=== PATIENT | male | born 1940 | race Caucasian/White ===

== ENCOUNTER 2016-08-16 13:40 | Inpatient (IN) | payer OTHER ==
[2016-08-16 13:51] VITALS: BMI 28.0
[2016-08-16] MEDS ORDERED: ASPIRIN 81 MG CHEWABLE TABLETS PO ONE (14:18)
[2016-08-16] MEDS ORDERED: NITROGLYCERIN SUBLINGUAL 1/150 0.4 MG TAB SL ONE (14:28)
[2016-08-16] MEDS ORDERED: ASPIRIN 81 MG CHEWABLE TABLETS ONE (14:35)
[2016-08-16] MEDS ORDERED: NITROGLYCERIN SUBLINGUAL 1/150 0.4 MG TAB ONE (14:35)
--- NOTE | 2016-08-16 14:45 | PDOC ---
History of Present Illness - General History Source: Patient Exam Limitations: No Limitations <Rohini Bay - Last Filed: 08/16/16 16:31> - General History Source: Patient Exam Limitations: No Limitations <Grace Villanueva - Last Filed: 08/16/16 17:04> - General Chief Complaint: Chest Pain Stated Complaint: CHEST PAIN Time Seen by Provider: 08/16/16 14:04 - History of Present Illness Initial Comments: 08/16/16 15:08 The patient is a 75 year old male, with a significant past medical history of hypertension, who presents to the emergency department complaining of chest pain since earlier this afternoon. The patient reports he was bowling, when suddenly he began to experience discomfort in his chest. He reports his pain is constant and localized substernally. When he went to sit and put on his shoes, he reports experiencing dizziness, diaphoresis, and nausea. He reports his pain is nonradiating and nonpleuritic in nature. He denies any associated numbness, tingling, shortness of breath, palpitations, or lower extremity edema. The patient reports similar chest pains in the past, but only with exertion. The patients last stress test was approximately 2-3 years ago. He denies any fever , chills, or headache. He reports he recently traveled to [place], but has no history of PE or DVT. He denies any abdominal pain, nausea, vomiting, diarrhea, or constipation. Allergies: None reported. Past Surgical History: None reported. Social History: Former Smoker. No ETOH or drug use. PCP: Dr. Bay (Grace Villanueva) Past History - Past Medical History HTN: Yes - Psycho/Social/Smoking Cessation Hx Anxiety: No Suicidal Ideation: No Smoking History: Former smoker Have you smoked in the past 12 months: No Information on smoking cessation initiated: No Hx Alcohol Use: No Drug/Substance Use Hx: No Substance Use Type: None <Rohini Bay - Last Filed: 08/16/16 16:31> <Grace Villanueva - Last Filed: 08/16/16 17:04> - Past Medical History Allergies/Adverse Reactions: Allergies Allergy/AdvReac Type Severity Reaction Status Date / Time No Known Allergies Allergy Verified 08/16/16 13:48 Review of Systems <Rohini Bay - Last Filed: 08/16/16 16:31> - Review of Systems Able to Perform ROS?: Yes <Grace Villanueva - Last Filed: 08/16/16 17:04> - Review of Systems Comments:: 08/16/16 15:08 GENERAL/CONSTITUTIONAL: No fever or chills. No weakness. HEAD, EYES, EARS, NOSE AND THROAT: No change in vision. No ear pain or discharge. No sore throat. CARDIOVASCULAR: Yes: +chest pain, +diaphoresis. No shortness of breath. RESPIRATORY: No cough, wheezing, or hemoptysis. GASTROINTESTINAL: No nausea, vomiting, diarrhea or constipation. GENITOURINARY: No dysuria, frequency, or change in urination. MUSCULOSKELETAL: No joint or muscle swelling or pain. No neck or back pain. SKIN: No rash NEUROLOGIC: No headache, vertigo, loss of consciousness, or change in strength/ sensation. ENDOCRINE: No increased thirst. No abnormal weight change. HEMATOLOGIC/LYMPHATIC: No anemia, easy bleeding, or history of blood clots. ALLERGIC/IMMUNOLOGIC: No hives or skin allergy. (Grace Villanueva) *Physical Exam <Rohini Bay - Last Filed: 08/16/16 16:31> <Grace Villanueva - Last Filed: 08/16/16 17:04> - Vital Signs Last Vital Signs Temp Pulse Resp BP Pulse Ox 97.6 F 70 20 140/98 98 08/16/16 13:48 08/16/16 13:48 08/16/16 13:48 08/16/16 13:48 08/16/16 13:48 - Physical Exam Comments: 08/16/16 15:08 GENERAL: Awake, alert, and fully oriented, in no acute distress HEAD: No signs of trauma EYES: PERRLA, EOMI, sclera anicteric, conjunctiva clear ENT: Auricles normal inspection, hearing grossly normal, nares patent. Moist mucosa NECK: Normal ROM, supple, no lymphadenopathy, JVD, or masses LUNGS: Breath sounds equal, clear to auscultation bilaterally. No wheezes, and no crackles HEART: Regular rate and rhythm, normal S1 and S2, no murmurs, rubs or gallops ABDOMEN: Soft, nontender, normoactive bowel sounds. No guarding, no rebound. No masses EXTREMITIES: Normal range of motion, no edema. No clubbing or cyanosis. No cords, erythema, or tenderness. DP/PT pulses 2+ and symmetric. Warm and well perfused. NEUROLOGICAL: Moves all extremities. Normal speech, normal gait SKIN: Warm, Dry, normal turgor, no rashes or lesions noted. (Grace Villanueva) Heart Score/ECG Review #2 ECG reviewed & interpreted by me at: 15:30 General ECG Interpretation: Sinus Rhythm, Normal Rate (64), Normal Intervals, No acute ischemic changes Compared to previous ECG there are: No significant change <Rohini Bay - Last Filed: 08/16/16 16:31> ED Treatment Course - LABORATORY CBC & Chemistry Diagram: 08/16/16 Unknown 08/16/16 Unknown <Rohini Bay - Last Filed: 08/16/16 16:31> - LABORATORY CBC & Chemistry Diagram: 08/16/16 Unknown 08/16/16 Unknown <Grace Villanueva - Last Filed: 08/16/16 17:04> - RADIOLOGY Radiograph Interpretation: 08/16/16 17:03 EXAM: CXR INTERPRETED BY: Dr. Jesus REVIEWED BY: Dr. Bay IMPRESSION: No acute pathology. (Grace Villanueva) - Medications Given in the ED: ED Medications Discontinued Medications Generic Name Dose Route Start Last Admin Trade Name Freq PRN Reason Stop Dose Admin Aspirin 162 mg 08/16/16 14:18 08/16/16 14:42 Asa - PO 08/16/16 14:19 162 mg ONCE ONE Administration Enoxaparin Sodium 100 mg 08/16/16 16:46 08/16/16 16:48 Lovenox - SQ 08/16/16 16:47 100 mg ONCE ONE Administration Nitroglycerin 0.4 mg 08/16/16 14:28 08/16/16 14:45 Nitrostat - SL 08/16/16 14:29 0.4 mg ONCE ONE Administration Nitroglycerin 1 inch 08/16/16 16:31 08/16/16 16:45 Nitro-Bid 2% Paste - TD 08/16/16 16:32 1 inch ONCE ONE Administration Medical Decision Making <Rohini Bay - Last Filed: 08/16/16 16:31> <Grace Villanueva - Last Filed: 08/16/16 17:04> - Medical Decision Making 08/16/16 14:39 75 yo M with h/o HTN, here wtih c/o chest pain. started 1 hour ago while bowling. pt noted substernal pain, no radiation. no f/c no cough. did get recurrent episode following, with associated lightheaded ness, nausea, and diaphoresis. no arm tingling or numbness. no abd or back pain. no h/o similar pain. has had a stress test 3 yrs ago. pt take bp meds, can't remember name. no h/o pe or dvt. pain still present on arrival. did not take any meds prior to arrival. on exam awake alert, lungs clear. heart RRR nom/r/g. abd soft NT ND no palp mass. ext wwp no calf edema. symmetric 2+ pulses bilaterally.. differential: ACS, infection angina. near syncope. pe unlikley. plan pt treated with asa, given nitro for pain. repeat ekg . will require admission to telemtry ro ACS. cxr (Rohini Bay) 08/16/16 16:47 First call placed to Dr. Parks at 16:47. Awaiting call back from Dr. Bee. Case discussed with Dr. Bee at 16:55. (Grace Villanueva) *DC/Admit/Observation/Transfer - Discharge Dispostion Admit: Yes <Rohini Bay - Last Filed: 08/16/16 16:31> <Grace Villanueva - Last Filed: 08/16/16 17:04> Diagnosis at time of Disposition: Chest pain - Attestations Scribe Attestion: 08/16/16 15:08 Documentation prepared by Grace Villanueva, acting as adjunct faculty for medical terminology for Rohini Bay MD. (Grace Villanueva)
[2016-08-16 14:47] LABS: BASOPHIL 0.4 % (0-2.0); MCHC 34.1 g/dl (32.0-35.9); MEAN PLT VOLUME 8.2 fl (7.5-11.1); NEUTROPHILS 81.3 % (42.8-82.8); PLATELET COUNT 138 K/MM3 (134-434); RDW 13.5 % (11.9-15.9); WHITE BLOOD COUNT 8.3 K/mm3 (4.0-10.0)
[2016-08-16 15:13] LABS: ALBUMIN 3.8 g/dl (3.4-5.0); ANION GAP 12 (8-16); BILIRUBIN,TOTAL 0.3 mg/dL (0.2-1.0); CALCIUM 8.5 mg/dL (8.5-10.1); CO2 21 mmol/L (21-32); CREATININE 0.9 mg/dL (0.7-1.3); GLUCOSE,RANDOM 109 mg/dL (74-106); SGOT/AST 20 U/L (15-37); SGPT/ALT 19 U/L (12-78); TOT PROT 6.5 g/dl (6.4-8.2)
[2016-08-16 15:15] LABS: ALK PHOS 117 U/L (45-117); TROPONIN I < 0.02 ng/ml (0.00-0.05)
[2016-08-16] MEDS ORDERED: NITROGLYCERIN 2% OINTMENT - 1GM PACKET TD ONE ×2 (16:31→16:36)
[2016-08-16] MEDS ORDERED: ENOXAPARIN NA (PORCINE) 100 MG/1 ML DISP.SYRIN SQ ONE (16:46)
[2016-08-16] MEDS ORDERED: ENOXAPARIN NA (PORCINE) 40 MG/0.4 ML DISP.SYRIN SQ ONE (16:53)
--- NOTE | 2016-08-16 18:20 | HP ---
Admitting History and Physical - Admission Chief Complaint: Chest pain History of Present Illness: 75 yrs old man H/O HTN, excellent exercise tolerance, 3 yrs ago had - ve NST, toady patient was doing Bowling after 4 round developed retro-sternal chest tightness,8/10, non radiating, lasted > 25 minutes with associated nausea and dizziness also felt SOB, denies any palpitation, 911 was called patient came to Ed for evaluation received ASA and NTG X2 with relive in pain, at the time of examination almost chest pain free denies any chest pain SOB or Palpitation. History Source: Patient Limitations to Obtaining History: No Limitations - Past Medical History Cardiovascular: Yes: HTN - Smoking History Smoking history: Former smoker Have you smoked in the past 12 months: No - Alcohol/Substance Use Hx Alcohol Use: No Home Medications - Allergies Allergies/Adverse Reactions: Allergies Allergy/AdvReac Type Severity Reaction Status Date / Time No Known Allergies Allergy Verified 08/16/16 13:48 - Home Medications Home Medications: Ambulatory Orders Aspirin [ASA -] 81 mg PO DAILY tab.chew 08/17/16 Atorvastatin Ca [Lipitor] 40 mg PO HS #30 tablet 08/17/16 Metoprolol Tartrate [Lopressor -] 12.5 mg PO BID #30 tablet 08/17/16 Family Disease History - Family Disease History Family Disease History: Heart Disease: Father, Mother Review of Systems - Review of Systems Constitutional: denies: Chills, Diaphoresis Eyes: reports: No Symptoms HENT: denies: Difficult Swallowing, Ear Discharge Neck: denies: Decreased ROM, Lumps Cardiovascular: reports: Chest Pain, Shortness of Breath Respiratory: denies: Cough, Hemoptysis, Orthopnea Gastrointestinal: denies: Abdominal Pain, Bloating, Constipation Genitourinary: denies: Burning, Discharge, Dysuria Musculoskeletal: denies: Back Pain, Decreased ROM Neurological: reports: No Symptoms Endocrine: denies: Excessive Sweating, Flushing Hematology/Lymphatic: denies: Easily Bruised, Excessive Bleeding Physical Examination Vital Signs: Vital Signs Temperature 97.6 F 08/16/16 13:48 Pulse Rate 70 08/16/16 13:48 Respiratory Rate 20 08/16/16 13:48 Blood Pressure 140/98 08/16/16 13:48 O2 Sat by Pulse Oximetry (%) 98 08/16/16 13:48 Elderly man comfortable denies any chest pain or SOB HEENT: MM moist , no anemia, , PERRLA, EOMI NECK; No JVD No Bruit CHEST: CTA B/L CVS; S1S2 R no m/g/r ABD: No distention, non tender Bs + EXT: No edema feet, no calf tenderness, Pulses +2 [employer]: AOx3 non focal Labs: CBC, BMP 08/16/16 Unknown 08/16/16 Unknown Imaging - Results Chest X-ray: Report Reviewed (Normal) EKG: Report Reviewed Problem List - Problems (1) Chest pain, rule out acute myocardial infarction Assessment/Plan: Patient is 72 yrs old man H/O HTN, present with typical anginal pain with exertion, responded to NTG, no EKG changes, normal Ist Trop I will Admit Tele monitor F/U serial CE, ECHO, , cardiology consult is called from the ED, seial EKGs, ASAS, Lipitor 80 mg, recived 1 dose of Lovenox, S/L NTG PRN for pain low dose B Blockers. Code(s): R07.9 - CHEST PAIN, UNSPECIFIED (2) HTN (hypertension) Assessment/Plan: Well controlled cont all home meds. Code(s): I10 - ESSENTIAL (PRIMARY) HYPERTENSION
[2016-08-16] MEDS ORDERED: ATORVASTATIN CA 80 MG TABLET (FP) PO ONE (18:27)
[2016-08-16] MEDS: ACETAMINOPHEN 325 MG TABLET (FP) PO PRN (20:30)
[2016-08-16 20:42] LABS: LDL CHOLESTEROL (ONLY SJRH) 106 mg/dL (5-100)
[2016-08-16 20:47] LABS: CHOLESTEROL 168 mg/dL (50-200)
[2016-08-16] MEDS: METOPROLOL TARTRATE 25 MG TABLET (FP) PO SCH (21:39)
[2016-08-17] MEDS: ACETAMINOPHEN 325 MG TABLET (FP) PO PRN (03:25)
--- NOTE | 2016-08-17 07:04 | CON.CARD ---
Consult Consult Specialty:: Cardiology for Dr. Parks/Keila Referred by:: Hospitalist Reason for Consultation:: Chest pain - History of Present Illness Chief Complaint: Chest pain History of Present Illness: 75 year old man with a history of HTN admitted with chest pain yesterday. Pt seen and examined today in nad. States that he was bowling yesterday when he felt sudden onset severe substernal chest pain, associated with dizziness, diaphoresis, nausea. He states that the chest pain continued all day including while in the ER yesterday evening then resolved overnight. This am he feels his normal self, asymptomatic. no further chest pain today. States he had a stress test 2-3 years ago that was normal. Denies any sob, pnd, orthopnea, le edema, no palpitations. no syncope or near syncope. - History Source History Provided By: Patient, Medical Record Limitations to Obtaining History: No Limitations - Past Medical History Cardio/Vascular: Yes: HTN - Alcohol/Substance Use Hx Alcohol Use: No - Smoking History Smoking history: Former smoker Have you smoked in the past 12 months: No - Social History ADL: Independent History of Recent Travel: No Home Medications - Allergies Allergies/Adverse Reactions: Allergies Allergy/AdvReac Type Severity Reaction Status Date / Time No Known Allergies Allergy Verified 08/16/16 13:48 - Home Medications Home Medications: Ambulatory Orders RX: Aspirin [ASA -] 81 mg PO DAILY tab.chew 08/17/16 RX: Atorvastatin Ca [Lipitor] 40 mg PO HS #30 tablet 08/17/16 RX: Metoprolol Tartrate [Lopressor -] 12.5 mg PO BID #30 tablet 08/17/16 Family Disease History - Family Disease History Family Disease History: Heart Disease: Father, Mother Review of Systems - Review of Systems Constitutional: reports: Diaphoresis. denies: No Symptoms, Chills, Fever, Lethargy, Loss of Appetite, Malaise, Night Sweats, Unintentional Wgt. Loss, Weakness, Other Eyes: denies: No Symptoms, Blind Spots, Blurred Vision, Double Vision, Eye Pain , Floaters, Photophobia, Recent Change in Vision, Other HENT: denies: No Symptoms, Difficult Swallowing, Ear Discharge, Ear Pain, Epistaxis, Gingival Bleeding, Hearing Loss, Mouth Swelling, Nasal Congestion, Ocular Prosthesis, Throat Pain, Toothache, Ringing in Ears, Other Neck: denies: No Symptoms, Decreased ROM, Lumps, Pain on Movement, Stiffness, Swollen Glands, Tenderness, Other Cardiovascular: reports: Chest Pain. denies: No Symptoms, Edema, Palpitations, Shortness of Breath, Other Respiratory: denies: No Symptoms, Cough, Exercise Intolerance, Hemoptysis, Orthopnea, PND, Snoring, SOB, SOB on Exertion, Wheezing, Other Gastrointestinal: reports: Nausea. denies: No Symptoms, Abdominal Pain, Bloating, Constipation, Diarrhea, Dysphagia, Indigestion, Melena, Rectal Bleeding, Vomiting, Vomiting Blood, Other Genitourinary: denies: No Symptoms, Burning, Discharge, Dysuria, Flank Pain, Frequency, Hematuria, Incontinence, Lesions, Menses, Pain, Testicular Mass, Testicular Pain, Testicular Swelling, Urgency, Vaginal Bleeding, Other Breasts: denies: No Symptoms Reported, See HPI, Breast Implants, Discharge from Nipple, Lumps, Pain, Skin Changes, Other Musculoskeletal: denies: No Symptoms, Back Pain, Crepitus, Decreased ROM, Extremity Pain, Joint Pain, Joint Swelling, Muscle Pain, Muscle Cramps, Muscle Weakness, Other Integumentary: denies: No Symptoms, Blister, Bruising, Change in Color, Eczema, Erythema, Incision, Lesions, Lump, Pallor, Pruritis, Rash, Wound, Other Neurological: denies: No Symptoms, Change in LOC, Change in Speech, Confusion, Dizziness, Headache, Incoordination, Numbness, Parasthesia, Pre-Existing Deficit , Seizure, Syncope, Tremors, Unsteady Gait, Weakness, Other Endocrine: denies: No Symptoms, Excessive Sweating, Flushing, Increased Hunger, Increased Thirst, Intolerance to Cold, Intolerance to Heat, Unexplained Weight Gain, Unexplained Weight Loss, Other Hematology/Lymphatic: denies: No Symptoms, Easily Bruised, Excessive Bleeding, Swollen Glands, Other Psychiatric: denies: No Symptoms, Altered Sleep Pattern, Anxiety, Depression, Hallucinations, Panic, Paranoia, Suicidal, Other - Risk Factors Known Risk Factors: Yes: Hypertension Vital Signs: Vital Signs Temperature 98.2 F 08/16/16 21:00 Pulse Rate 51 L 08/17/16 05:00 Respiratory Rate 16 08/17/16 05:00 Blood Pressure 115/59 08/17/16 05:00 O2 Sat by Pulse Oximetry (%) 98 08/16/16 22:00 Constitutional: Yes: Well Nourished, No Distress, Calm Eyes: Yes: WNL, Conjunctiva Clear, EOM Intact, PERRL HENT: Yes: WNL, Atraumatic, Normocephalic Neck: Yes: WNL, Supple, Trachea Midline Respiratory: Yes: WNL, Regular, CTA Bilaterally. No: Rales, Rhonchi, Wheezes Gastrointestinal: Yes: WNL, Normal Bowel Sounds, Soft. No: Distention, Tenderness Renal/: Yes: WNL Cardiovascular: Yes: WNL, Regular Rate and Rhythm. No: Bradycardia, Tachycardia , Pulse Irregular, Gallop, Rub, Varicosities JVD: No Carotid Bruit: No PMI: Non-Displaced Heart Sounds: Yes: S1, S2. No: Split S2, S3, S4, Clicks, Gallop, Rub, Bruit Murmur: No: Systolic Murmur, Diastolic Murmur Musculoskeletal: Yes: WNL Extremities: Yes: WNL Edema: No Peripheral Pulses WNL: Yes Peripheral Pulses: 2+ Left Doralis Pedis, 2+ Right Dorsalis Pedis Integumentary: Yes: WNL Neurological: Yes: WNL, Alert, Oriented, Cran Nerves II-XII Intact ...Motor Strength: WNL Psychiatric: Yes: WNL, Alert, Oriented - Other Data Labs, Other Data: CBC, BMP 08/16/16 Unknown 08/16/16 Unknown Troponin, BNP 08/16/16 08/16/16 Unknown Unknown Troponin I < 0.02 < 0.02 Troponin, BNP 08/16/16 08/16/16 Unknown Unknown Troponin I < 0.02 < 0.02 ekg-not available in chart for review, reportedly normal with no ischemia Imaging - Results Chest X-ray: Report Reviewed, Image Reviewed EKG: Report Reviewed, Image Reviewed Other: Report Reviewed, Image Reviewed (tele-nsr, sinus bradycardia, PVCs, 1 episode brief bigeminy) Assessment/Plan 75 year old man with a history of HTN admitted with chest pain yesterday. Pt seen and examined today in nad. States that he was bowling yesterday when he felt sudden onset severe substernal chest pain, associated with dizziness, diaphoresis, nausea. He states that the chest pain continued all day including while in the ER yesterday evening then resolved overnight. Chest pain-concerning for angina -no further chest pain overnight or today thus far -cardiac enzymes wnl x 2 -repeat cardiac enzymes this am -I have recc to patient that he stay for observation until tomorrow with a plan for echo and exercise nuclear stress test tomorrow. He expressed desire to be discharged home today and have further work up as outpatient this week. I have informed him that while his tests thus far have showed no evidence of an CT he could still have significant CAD causing his symptoms and could have an unstable plaque and thus would recc further work up as inpatient. -echo and nuclear stress test ordered for tomorrow in case patient agrees to remain inpatient for additional work up. If he is discharged would plan for the above tests as early as possible this week as outpatient.
[2016-08-17 07:25] LABS: BASOPHIL 0.5 % (0-2.0); EOSINOPHIL 1.5 % (0-4.5); MCH 31.2 pg (25.7-33.7); MCHC 34.2 g/dl (32.0-35.9); MEAN CELL VOLUME 91.1 fl (80-96); MEAN PLT VOLUME 7.9 fl (7.5-11.1); NEUTROPHILS 74.7 % (42.8-82.8); PLATELET COUNT 137 K/MM3 (134-434); RDW 13.5 % (11.9-15.9); WHITE BLOOD COUNT 8.6 K/mm3 (4.0-10.0)
[2016-08-17 08:52] LABS: ALBUMIN 3.6 g/dl (3.4-5.0); ANION GAP 7 (8-16); BILIRUBIN,TOTAL 0.6 mg/dL (0.2-1.0); CALCIUM 8.6 mg/dL (8.5-10.1); CO2 26 mmol/L (21-32); CREATININE 0.9 mg/dL (0.7-1.3); GLUCOSE,RANDOM 89 mg/dL (74-106); SGOT/AST 20 U/L (15-37); SGPT/ALT 19 U/L (12-78); TOT PROT 5.9 g/dl (6.4-8.2)
[2016-08-17 09:01] LABS: ALK PHOS 99 U/L (45-117); THYROID STIMULATING HORMONE 0.66 uIU/ml (0.358-3.74)
[2016-08-17] MEDS: METOPROLOL TARTRATE 25 MG TABLET (FP) PO SCH (09:16)
[2016-08-17] MEDS ORDERED: ASPIRIN 81 MG CHEWABLE TABLETS PO SCH (10:00)
--- NOTE | 2016-08-17 10:53 | DS ---
Physical Exam: SUBJECTIVE: Patient seen and examined OBJECTIVE: Vital Signs Period Temp Pulse Resp BP Sys/Stout Pulse Ox Last 24 Hr 97.6 F-98.2 F 51-70 16-17 100-148/51-80 98-98 PHYSICAL EXAM GENERAL: The patient is awake, alert, and fully oriented, in no acute distress. HEAD: Normal with no signs of trauma. EYES: PERRL, extraocular movements intact, sclera anicteric, conjunctiva clear. ENT: Ears normal, nares patent, oropharynx clear without exudates, moist mucous membranes. NECK: Trachea midline, full range of motion, supple. LUNGS: Breath sounds equal, clear to auscultation bilaterally, no wheezes, no crackles, no accessory muscle use. HEART: Regular rate and rhythm, S1, S2 without murmur, rub or gallop. ABDOMEN: Soft, nontender, nondistended, normoactive bowel sounds, no guarding, no rebound, no hepatosplenomegaly, no masses. EXTREMITIES: 2+ pulses, warm, well-perfused, no edema. NEUROLOGICAL: Cranial nerves II through XII grossly intact. Normal speech, gait not observed. PSYCH: Normal mood, normal affect. SKIN: Warm, dry, normal turgor, no rashes or lesions noted. LABS Laboratory Results - last 24 hr 08/16/16 08/16/16 08/16/16 Unknown Unknown Unknown WBC 8.3 RBC 4.29 Hgb 13.3 Hct 39.0 MCV 91.0 MCHC 34.1 RDW 13.5 Plt Count 138 MPV 8.2 Neutrophils % 81.3 Lymphocytes % 11.5 Monocytes % 5.8 Eosinophils % 1.0 Basophils % 0.4 Sodium 142 Potassium 3.6 Chloride 109 H Carbon Dioxide 21 Anion Gap 12 BUN 19 H D Creatinine 0.9 Creat Clearance w eGFR > 60 Random Glucose 109 H Hemoglobin A1c % Calcium 8.5 Total Bilirubin 0.3 AST 20 ALT 19 Alkaline Phosphatase 117 Creatine Kinase 167 Creatine Kinase Index 0.8 CK-MB (CK-2) 1.338 CK-MB (CK-2) Rel Index Cancelled Troponin I < 0.02 Total Protein 6.5 Albumin 3.8 Triglycerides Cholesterol Total LDL Cholesterol HDL Cholesterol TSH 08/16/16 08/16/16 08/17/16 Unknown Unknown 05:42 WBC 8.6 RBC 3.95 L Hgb 12.3 Hct 36.0 MCV 91.1 MCHC 34.2 RDW 13.5 Plt Count 137 MPV 7.9 Neutrophils % 74.7 Lymphocytes % 15.0 D Monocytes % 8.3 Eosinophils % 1.5 Basophils % 0.5 Sodium Potassium Chloride Carbon Dioxide Anion Gap BUN Creatinine Creat Clearance w eGFR Random Glucose Hemoglobin A1c % Calcium Total Bilirubin AST ALT Alkaline Phosphatase Creatine Kinase Creatine Kinase Index CK-MB (CK-2) CK-MB (CK-2) Rel Index Troponin I < 0.02 Total Protein Albumin Triglycerides 81 Cholesterol 168 Total LDL Cholesterol 106 H HDL Cholesterol 43 TSH 08/17/16 08/17/16 05:42 05:42 WBC RBC Hgb Hct MCV MCHC RDW Plt Count MPV Neutrophils % Lymphocytes % Monocytes % Eosinophils % Basophils % Sodium 142 Potassium 3.8 Chloride 109 H Carbon Dioxide 26 D Anion Gap 7 L BUN 19 H Creatinine 0.9 Creat Clearance w eGFR > 60 Random Glucose 89 Hemoglobin A1c % 5.7 Calcium 8.6 Total Bilirubin 0.6 D AST 20 ALT 19 Alkaline Phosphatase 99 Creatine Kinase Creatine Kinase Index CK-MB (CK-2) CK-MB (CK-2) Rel Index Troponin I Total Protein 5.9 L Albumin 3.6 Triglycerides Cholesterol Total LDL Cholesterol HDL Cholesterol TSH 0.66 HOSPITAL COURSE: Date of Admission:08/16/16 Date of Discharge: 08/17/16 Minutes to complete discharge: 30 Discharge Summary Reason For Visit: CHEST PAIN Current Active Problems Chest pain (Acute) Chest pain, rule out acute myocardial infarction (Acute) HTN (hypertension) (Acute) Condition: Stable - Instructions Diet, Activity, Other Instructions: Please call Dr. Bay's office tomorrow to schedule a follow up appointment and to arrange for a nuclear stress test. You should avoid strenuous activity until you have the results of the stress test. Referrals: Hayes Bay MD [Staff Physician] - Disposition: HOME - Home Medications Comprehensive Discharge Medication List: Ambulatory Orders Aspirin [ASA -] 81 mg PO DAILY tab.chew 08/17/16 Atorvastatin Ca [Lipitor] 40 mg PO HS #30 tablet 08/17/16 Metoprolol Tartrate [Lopressor -] 12.5 mg PO BID #30 tablet 08/17/16 This patient is new to me today: Yes Date on this admission: 08/17/16 Emergency Visit: Yes ED Registration Date: 08/16/16 Care time: The patient presented to the Emergency Department on the above date and was hospitalized for further evaluation of their emergent condition. Critical Care patient: No - Discharge Referral Referred to [facility] Yes Physician Referral: Hayes Foreman MD ([facility])
[2016-08-17 11:01] VITALS: BP 131/72; PULSE 60; TEMP 97.9
--- NOTE | 2016-08-17 15:38 | EKG ---
Test Reason : Blood Pressure : / mmHG Vent. Rate : 064 BPM Atrial Rate : 064 BPM P-R Int : 202 ms QRS Dur : 094 ms QT Int : 450 ms P-R-T Axes : 055 013 052 degrees QTc Int : 464 ms NORMAL SINUS RHYTHM NORMAL ECG WHEN COMPARED WITH ECG OF 16-AUG-2016 13:47, NO SIGNIFICANT CHANGE WAS FOUND Confirmed by JESSICA RENEE MD ([id number]) on 08/17/2016 3:38:00 PM Referred By: Confirmed By:JESSICA RENEE MD
--- NOTE | 2016-08-17 15:38 | EKG ---
Test Reason : Blood Pressure : / mmHG Vent. Rate : 068 BPM Atrial Rate : 068 BPM P-R Int : 196 ms QRS Dur : 100 ms QT Int : 436 ms P-R-T Axes : 053 017 060 degrees QTc Int : 463 ms NORMAL SINUS RHYTHM NONSPECIFIC ST ABNORMALITY ABNORMAL ECG WHEN COMPARED WITH ECG OF 22-NOV-1999 14:23, PREMATURE VENTRICULAR COMPLEXES ARE NO LONGER PRESENT Confirmed by THELMA PRADO, JESSICA ([id number]) on 08/17/2016 3:38:19 PM Referred By: Confirmed By:JESSICA RENEE MD
[2016-08-17] MEDS ORDERED: ATORVASTATIN CA 40 MG TABLET (FP) PO SCH (22:00)
== END 2016-08-17 11:20 | disposition home or self-care (01) | DRG 313 ==
LOC: JER 13:40 → JERBED 15:54 → UNDOADMIN 16:06 → JERBED 16:06 → J4W 19:53
PROVIDERS: ADMIT Internal Medicine; ATTEND Internal Medicine
DX: R07.89 Other chest pain (principal); I10 Essential (primary) hypertension; Z87.891 Personal history of nicotine dependence
CPT/HCPCS: 36415; 71010-TC; 80053; 80061; 82550; 82553; 83036; 83721; 84443; 84484; 85025; 93005; 93010; 99284-25

== ENCOUNTER 2019-11-10 11:44 | Emergency (ER) | payer OTHER ==
[2019-11-10 11:50] VITALS: BMI 25.4
--- NOTE | 2019-11-10 12:34 | PDOC ---
History of Present Illness - General Chief Complaint: Nausea Stated Complaint: NAUSEA Time Seen by Provider: 11/10/19 12:01 - History of Present Illness Initial Comments: 11/10/19 12:17 78yo M with PMH CAD (s/p 2 stents in 2017), HTN, and recent lower back surgery (10/03/19) presents with 5 days of nausea and abdominal discomfort. Patient states he suddenly started feeling nauseous last Thursday around noon, and has been dry heaving ever since then without bringing anything up. Reports periumbilical discomfort, non-radiating, and exacerbated by food. Called his PCP 3 days ago who prescribed zofran over the phone, which provides temporary relief. The PCP saw him in the office and got and abdominal x-ray and labs, but the patient has not yet heard the results. Reports a 26lb weight loss in the past month, which he discovered when weighed at a recent doctors visit. Thinks he probably has been eating less. Last BM three days ago, which is normal for him, and denies constipation, diarrhea, urinary symptoms. Reports getting whole body shakes in the morning, which self-resolve within minutes. Reports feeling abnormally hot or cold recently, but denies fever or night sweats. Thinks he is weaker than usual, which he attributes to eating less. Denies lightheadedness, vertigo, headache, chest pain, SOB. Of note, he stopped taking gabapentin the week before his symptoms started. PMH/PSH: as above Home Medications Medication Instructions Recorded Atorvastatin Ca [Lipitor] 40 mg PO HS #30 tablet 08/17/16 Amlodipine Besylate 10 mg PO DAILY 11/10/19 Clopidogrel Bisulfate [Plavix -] 75 mg PO DAILY 11/10/19 Losartan Potassium 100 mg PO DAILY 11/10/19 Metoprolol Tartrate [Lopressor -] 25 mg PO DAILY 11/10/19 Ondansetron HCl [Zofran] 4 mg PO TID 11/10/19 Sertraline HCl 100 mg PO DAILY 11/10/19 Allergies Allergy/AdvReac Type Severity Reaction Status Date / Time No Known Allergies Allergy Verified 11/10/19 11:46 PCP: Russell (admits to Chris) NUVIA GENERAL/CONSTITUTIONAL: No fever or chills. weakness. HEAD, EYES, EARS, NOSE AND THROAT: No change in vision. No ear pain or discharge. No sore throat. CARDIOVASCULAR: No chest pain or shortness of breath RESPIRATORY: No cough, wheezing, or hemoptysis. GASTROINTESTINAL: nausea. No vomiting, diarrhea or constipation. GENITOURINARY: No dysuria, frequency, or change in urination. MUSCULOSKELETAL: No joint or muscle swelling or pain. No neck or back pain. SKIN: No rash NEUROLOGIC: No headache, vertigo, loss of consciousness, or change in strength/sensation. ENDOCRINE: No increased thirst. weight loss, heat and cold intolerance HEMATOLOGIC/LYMPHATIC: No anemia, easy bleeding, or history of blood clots. ALLERGIC/IMMUNOLOGIC: No hives or skin allergy. PE GENERAL: Awake, alert, and fully oriented, in no acute distress HEAD: No signs of trauma, normocephalic, atraumatic EYES: PERRLA, EOMI, sclera anicteric, conjunctiva clear ENT: Auricles normal inspection, hearing grossly normal, nares patent, oropharynx clear without exudates. Moist mucosa NECK: Normal ROM, supple, no lymphadenopathy, JVD, or masses LUNGS: No distress, speaks full sentences, clear to auscultation bilaterally HEART: Regular rate and rhythm, normal S1 and S2, no murmurs, rubs or gallops, peripheral pulses normal and equal bilaterally. ABDOMEN: Soft, nontender, non-distended, normoactive bowel sounds. Voluntary guarding. EXTREMITIES : Normal inspection, Normal range of motion, no edema. No clubbing or cyanosis. NEUROLOGICAL: Cranial nerves II through XII grossly intact. Normal speech, no focal sensorimotor deficits SKIN: Warm, Dry, normal turgor. Healing surgical incision on lumbar spine Vital Signs Temp Pulse Resp BP Pulse Ox 97.8 F 65 18 110/69 99 11/10/19 11:46 11/10/19 11:46 11/10/19 11:46 11/10/19 11:46 11/10/19 11:46 MDM: 78yo 78yo M with PMH CAD (s/p 2 stents in 2017), HTN, and recent lower back surgery (10/03/19) presents with 5 days of nausea and abdominal discomfort, as well as a 26lb weight loss over the past month. Exam notable for voluntary abdominal guarding without distension or tenderness. DDx includes bowel obstruction, abdominal mass/cancer, pancreatitis, ACS. -EKG -CT A/P with IV contrast -CBC, CMP, trops, lactate, lipase -1000ml NS bolus -1000mg IV tylenol 11/10/19 13:02 11/10/19 14:27 EKG Labs: No white count or anemia Plt 124 K 3.4 alk phos 154 negative trops x1, lactate, lipase CT A/P IMPRESSION: Peripherally enhancing subcutaneous collection superficial to lumbar spine fusion hardware, suggestive of abscess. Enteric contrast visualized throughout the large intestine is likely retained from previous outside examination. Recommend correlation with history of recent radiologic exams and constipation. Moderate prostatomegaly. 11/10/19 19:51 DC home with omeprazole, instructions to call neurosurgeon tomorrow, and PCP/GI f/u Past History - Medical History Allergies/Adverse Reactions: Allergies Allergy/AdvReac Type Severity Reaction Status Date / Time No Known Allergies Allergy Verified 11/10/19 11:46 Home Medications: Ambulatory Orders Atorvastatin Ca [Lipitor] 40 mg PO HS #30 tablet 08/17/16 Amlodipine Besylate 10 mg PO DAILY 11/10/19 Clopidogrel Bisulfate [Plavix -] 75 mg PO DAILY 11/10/19 Losartan Potassium 100 mg PO DAILY 11/10/19 Metoprolol Tartrate [Lopressor -] 25 mg PO DAILY 11/10/19 Omeprazole 20 mg PO DAILY 14 Days #14 tablet. 11/10/19 Ondansetron HCl [Zofran] 4 mg PO TID 11/10/19 Sertraline HCl 100 mg PO DAILY 11/10/19 Cardiac Disorders: Yes (stent) COPD: No CHF: No HTN: Yes - Psycho-Social/Smoking History Smoking History: Never smoked Have you smoked in the past 12 months: No - Substance Abuse Hx (Audit-C & DAST Scrn) How often the patient has a drink containing alcohol: Never Score: In Men: 4 or > Positive; In Women: 3 or > Positive: 0 Screen Result (Pos requires Nsg. Audit-10AR): Negative *Physical Exam - Vital Signs Last Vital Signs Temp Pulse Resp BP Pulse Ox 97.8 F 65 18 110/69 99 11/10/19 11:46 11/10/19 11:46 11/10/19 11:46 11/10/19 11:46 11/10/19 11:46 ED Treatment Course - LABORATORY CBC & Chemistry Diagram: 11/10/19 12:45 11/10/19 12:45 Discharge - Discharge Information Problems reviewed: Yes Clinical Impression/Diagnosis: Nausea - Additional Discharge Information Prescriptions: Omeprazole 20 mg PO DAILY 14 Days #14 tablet. - Follow up/Referral Referrals: Hayes Bay MD [Primary Care Provider] - Tyrone Michele DO [Staff Physician] - - Patient Discharge Instructions Additional Instructions: You were seen in the ER for nausea. We did a physical exam, EKG, labs, and a CT scan of your abdomen and pelvis, none of which showed any emergent pathology or provided a good explanation for your symptoms. Incidentally, your CT scan showed a fluid collection vs. and abscess underneath your surgical incision. You should call your neurosurgeon about this tomorrow. For your nausea, you should continue to take the anti-nausea medication, zofran. We also sent a prescription for an anti-acid medication, omeprazole, to your pharmacy. You should follow up with your primary doctor in the next three days and see a after school program teacher. Please return to the ER for continued or worsening symptoms, vomiting, fever, or any other reason. - Post Discharge Activity
[2019-11-10] MEDS ORDERED: SODIUM CHLORIDE 0.9% 1000 ML INFUS.BAG IV ONE (12:45)
[2019-11-10] MEDS ORDERED: ACETAMINOPHEN 1000 MG/100 ML VIAL (NON FORMULARY) IVPB ONE (12:45)
[2019-11-10] MEDS ORDERED: ACETAMINOPHEN INJECTION 100 ML IVPB ONE (12:58)
[2019-11-10 13:35] LABS: BASO % 0.5 % (0-2.0); EOS % 1.8 % (0-4.5); HEMATOCRIT 36.1 % (35.4-49); HEMOGLOBIN 12.1 GM/dL (11.7-16.9); LYMPH % 12.7 % (8-40); MCH 30.5 pg (25.7-33.7); MCHC 33.6 g/dl (32.0-35.9); MEAN CELL VOLUME 90.7 fl (80-96); MEAN PLT VOLUME 8.8 fl (7.5-11.1); MONO % 8.8 % (3.8-10.2); NEUT % 76.2 % (42.8-82.8); PLATELET COUNT 124 K/MM3 (134-434); RBC 3.98 M/mm3 (4.00-5.60); RDW 14.1 % (11.9-15.9); WHITE BLOOD COUNT 5.8 K/mm3 (4.0-10.0)
[2019-11-10 14:14] LABS: ALBUMIN 3.9 g/dl (3.4-5.0); ALK PHOS 154 U/L (45-117); ANION GAP 8 MMOL/L (8-16); BILIRUBIN,TOTAL 0.7 mg/dL (0.2-1); CALCIUM 9.2 mg/dL (8.5-10.1); CHLORIDE 104 mmol/L (98-107); CO2 28 mmol/L (21-32); CREATININE 1.2 mg/dL (0.55-1.3); GLUCOSE,RANDOM 102 mg/dL (74-106); LIPASE 114 U/L (73-393); POTASSIUM 3.4 mmol/L (3.5-5.1); SGOT/AST 21 U/L (15-37); SGPT/ALT 26 U/L (13-61); SODIUM 139 mmol/L (136-145); TOT PROT 6.7 g/dl (6.4-8.2)
--- NOTE | 2019-11-10 14:16 | PDOC ---
Documentation entered by Amilcar Meek SCRIBE, acting as scribe for Josias Carolina MD. Josias Carolina MD: This documentation has been prepared by the lenoibeFantasma Alexis, SCRIBE, under my direction and personally reviewed by me in its entirety. I confirm that the documentation accurately reflects all work, treatment, procedures, and medical decision making performed by me. Attending Attestation - Resident Resident Name: TeresaJanusz - ED Attending Attestation I have performed the following: I have examined & evaluated the patient, The case was reviewed & discussed with the resident, I agree w/resident's findings & plan, Exceptions are as noted - HPI HPI: 11/10/19 13:25 The patient is a 78 year old male with a significant past medical history of HTN, CAD ( 2 stents, 2016), and lower back surgery (10/03/19) who presents to the ED for evaluation of sudden onset of nausea and abdominal discomfort that began 5 days ago. The patient reports dry heaving, decreased appetite, weakness, body shakes in the morning without fever, feeling abnormally hot or cold without fever, and pain is worsened with eating. After calling his PCP 3 days ago, he has been taking Zofran to temporary relief. After seeing his PCP yesterday, the patient discovered a 26lb weight loss in the past month and is awaiting imaging and lab results. Last BM: 3 days ago The patient denies chest/back pain, cough, and shortness of breath. Denies fever, chills. Denies any symptoms. Denies any other symptoms. Allergies: NKDA PCP: Dr. Bay - Physicial Exam PE: 11/10/19 13:21 Vitals: Triage Vital signs reviewed General Appearance: no acute distress, well nourished well developed, Neck: Supple;No Nuchal rigidity Chest Wall: Nontender Cardiac: Regular rate and rhythm, no murmurs, no rubs, no gallops, Lungs: Clear to auscultation bilateral, good air movement bilaterally, Abdomen: Soft, nondistended, normal bowel sounds, nontender to palpation Rectal: Exam deferred Extremities: Full range of motion to all extremities, no cyanosis, clubbing, or edema Skin: Warm and dry, no rashes or lesions, no petechiae - Medical Decision Making 11/10/19 14:16 78 year old male with a significant past medical history of HTN, CAD ( 2 stents, 2017), and lower back surgery (10/03/19) who presents to the ED for evaluation of sudden onset of nausea and abdominal discomfort that began 5 days ago Labs and CAT scan unremarkable most likely stomach issue Patient will require outpatient GI follow-up and endoscopy We will start patient on PPI have patient follow-up with his PCP and GI strict return instructions discussed with patient Findings, need for follow-up and strict return instructions discussed with patient. Discharge - Discharge Information Problems reviewed: Yes Clinical Impression/Diagnosis: Nausea Condition: Stable Disposition: HOME - Additional Discharge Information Prescriptions: Omeprazole 20 mg PO DAILY 14 Days #14 tablet.dr - Follow up/Referral Referrals: Hayes Bay MD [Primary Care Provider] - Tyrone Michele DO [Staff Physician] - - Patient Discharge Instructions Additional Instructions: You were seen in the ER for nausea. We did a physical exam, EKG, labs, and a CT scan of your abdomen and pelvis, none of which showed any emergent pathology or provided a good explanation for your symptoms. Incidentally, your CT scan showed a fluid collection vs. and abscess underneath your surgical incision. You should call your neurosurgeon about this tomorrow. For your nausea, you should continue to take the anti-nausea medication, zofran. We also sent a prescription for an anti-acid medication, omeprazole, to your pharmacy. You should follow up with your primary doctor in the next three days and see a developer prover upholstering. Please return to the ER for continued or worsening symptoms, vomiting, fever, or any other reason. - Post Discharge Activity
--- NOTE | 2019-11-10 15:26 | EKG ---
Test Reason : Blood Pressure : / mmHG Vent. Rate : 052 BPM Atrial Rate : 052 BPM P-R Int : 186 ms QRS Dur : 094 ms QT Int : 472 ms P-R-T Axes : 054 019 038 degrees QTc Int : 438 ms SINUS BRADYCARDIA OTHERWISE NORMAL ECG WHEN COMPARED WITH ECG OF 16-AUG-2016 15:28, NO SIGNIFICANT CHANGE WAS FOUND Confirmed by CAREN GUTIÉRREZ MD ([id number]) on 11/10/2019 3:25:44 PM Referred By: Confirmed By:CAREN GUTIÉRREZ MD
[2019-11-10 17:02] VITALS: BP 141/75; PULSE 61; TEMP 98.2
== END 2019-11-10 17:34 | disposition home or self-care (01) ==
LOC: JER 11:44
PROC: 3E0333Z Introduction of Anti-inflammatory into Peripheral Vein, Percutaneous Approach (ICD-10-PCS; principal; 2019-11-10)
DX: R11.0 Nausea (principal)
CPT/HCPCS: 36415; 74177-TC; 80053; 82550; 83605; 83690; 84484; 85025; 93005; 93010; 99285-25; J0131; Q9967

== ENCOUNTER 2020-11-22 04:34 | Day surgery (SDC) | payer OTHER ==
[2020-11-20 16:08] VITALS: BMI 28.6
[2020-11-22 10:37] VITALS: PULSE 64; TEMP 97.1
[2020-11-22 11:00] VITALS: BP 132/71
== END 2020-11-22 10:25 | disposition home or self-care (01) ==
LOC: JASU-ENDO 04:34
PROVIDERS: ATTEND Internal Medicine Gastroenterology
PROC: 0DJD8ZZ Inspection of Lower Intestinal Tract, Via Natural or Artificial Opening Endoscopic (ICD-10-PCS; principal; 2020-11-22 10:18)
DX: Z12.11 Encounter for screening for malignant neoplasm of colon (principal)

== ENCOUNTER 2022-01-16 04:02 | Day surgery (SDC) | payer OTHER ==
[2022-01-13 12:34] VITALS: BMI 26.9
[2022-01-16] MEDS ORDERED: LIDOCAINE HCL 1%, 10 MG/ML (20ML VIAL) ONE (07:21)
[2022-01-16] MEDS ORDERED: BUPIVACAINE HCL/PF 0.5% (5MG/ML) 10 ML VIAL ONE (07:23)
[2022-01-16] MEDS ORDERED: PROPOFOL 40 ML ONE (09:17)
[2022-01-16] MEDS ORDERED: MIDAZOLAM HCL 2 MG/2 ML SINGLE DOSE VIAL ONE (09:17)
[2022-01-16] MEDS ORDERED: ROCURONIUM BROMIDE 50 MG/5 ML SYRINGE ONE (09:25)
[2022-01-16] MEDS ORDERED: ceFAZolin SODIUM 1 GM VIAL IVPB ONE (09:25)
[2022-01-16] MEDS ORDERED: DEXAMETHASONE SOD PHOSPHATE 4 MG/1 ML VIAL ONE (09:31)
[2022-01-16] MEDS ORDERED: ceFAZolin SODIUM 1 GM VIAL ONE (09:31)
[2022-01-16] MEDS ORDERED: ONDANSETRON 4 MG/2 ML VIAL ONE (09:31)
[2022-01-16] MEDS ORDERED: LIDOCAINE HCL 1%, 10 MG/ML (20ML VIAL) SQ ONE (09:52)
[2022-01-16] MEDS ORDERED: BUPIVACAINE HCL/PF 0.5% (5MG/ML) 10 ML VIAL IJ ONE (09:52)
[2022-01-16] MEDS ORDERED: KETOROLAC TROMETHAMINE 30 MG/1 ML VIAL ONE (09:54)
[2022-01-16] MEDS ORDERED: LIDOCAINE HCL 4% TOPICAL SOLN (50 ML/BOTTLE) ONE (10:34)
[2022-01-16] MEDS ORDERED: NEOSTIGMINE METHYLSULFATE 0.5 MG/1 ML - 10 ML MDV ONE (10:34)
[2022-01-16] MEDS ORDERED: GLYCOPYRROLATE 0.2 MG/1 ML VIAL ONE (10:34)
[2022-01-16] MEDS ORDERED: ONDANSETRON 4 MG/2 ML VIAL IVPUSH PRN (11:08)
[2022-01-16] MEDS ORDERED: LACTATED RINGERS SOLUTION 1,000 ML IV SCH (11:15)
[2022-01-16 12:20] VITALS: RESP 18; TEMP 98
[2022-01-16 13:23] VITALS: BP 128/74; PULSE 68
== END 2022-01-16 13:35 | disposition home or self-care (01) ==
LOC: JASU-SURG 04:02
PROVIDERS: ATTEND Surgery
PROC: 0DQV0ZZ Repair Mesentery, Open Approach (ICD-10-PCS; principal; 2022-01-16 12:30)
DX: K40.90 Unilateral inguinal hernia, without obstruction or gangrene, not specified as recurrent (principal)
CPT/HCPCS: 88302-TC; 94760; C1781

== ENCOUNTER 2024-02-18 04:10 | Day surgery (SDC) | payer OTHER ==
[2024-02-17 11:32] VITALS: BMI 27.6
[2024-02-18] MEDS ORDERED: TRIAMCINOLONE ACET 40MG/1ML VIAL ONE (07:22)
[2024-02-18] MEDS ORDERED: BUPIVACAINE HCL/PF 0.5% (5MG/ML) 10 ML VIAL ONE (07:23)
[2024-02-18] MEDS ORDERED: LIDOCAINE HCL/PF 1% SDV 5ML VIAL ONE (07:23)
[2024-02-18 14:16] VITALS: PULSE 54; TEMP 98.6
[2024-02-18 14:23] VITALS: BP 146/83; RESP 18
[2024-02-18] MEDS ORDERED: ACETAMINOPHEN 500 MG TABLET (FP) PO PRN (18:05)
== END 2024-02-18 14:29 | disposition home or self-care (01) ==
LOC: JASU-SURG 04:10
PROVIDERS: ATTEND Pain Medicine Pain Medicine
PROC: 3E0U3BZ Introduction of Anesthetic Agent into Joints, Percutaneous Approach (ICD-10-PCS; 2024-02-18)
PROC: 3E0U33Z Introduction of Anti-inflammatory into Joints, Percutaneous Approach (ICD-10-PCS; principal; 2024-02-18 12:30)
DX: M53.3 Sacrococcygeal disorders, not elsewhere classified (principal)
CPT/HCPCS: 76000-TC-FY

== ENCOUNTER 2024-03-17 04:38 | Day surgery (SDC) | payer OTHER ==
[2024-03-16 10:53] VITALS: BMI 27.6
[2024-03-17] MEDS ORDERED: LIDOCAINE HCL/PF 1% SDV 5ML VIAL ONE (07:49)
[2024-03-17] MEDS: LIDOCAINE 1% P/F 10 MG/ML VIAL INF ONE ×3 (08:47)
[2024-03-17] MEDS ORDERED: ACETAMINOPHEN 500 MG TABLET (FP) PO PRN (09:04)
[2024-03-17 09:20] VITALS: BP 144/81; PULSE 80; RESP 18; TEMP 97.8
== END 2024-03-17 09:55 | disposition home or self-care (01) ==
LOC: JASU-SURG 04:38
PROVIDERS: ATTEND Pain Medicine Pain Medicine
PROC: 01HY3MZ Insertion of Neurostimulator Lead into Peripheral Nerve, Percutaneous Approach (ICD-10-PCS; principal; 2024-03-17 09:30)
DX: G89.4 Chronic pain syndrome (principal)
CPT/HCPCS: 64555; C1778; 76000-TC-FY

== ENCOUNTER 2024-05-19 06:56 | Day surgery (SDC) | payer OTHER ==
[2024-05-17 13:19] VITALS: BMI 27.6
[2024-05-19] MEDS ORDERED: LIDOCAINE HCL/PF 1% SDV 5ML VIAL ONE (07:28)
[2024-05-19] MEDS ORDERED: BUPIVACAINE HCL/PF 0.5% (5MG/ML) 10 ML VIAL ONE (07:28)
[2024-05-19] MEDS ORDERED: TRIAMCINOLONE ACET 40MG/1ML VIAL ONE (07:28)
[2024-05-19] MEDS ORDERED: ACETAMINOPHEN 500 MG TABLET (FP) PO PRN (08:55)
[2024-05-19 10:08] VITALS: RESP 18
[2024-05-19 12:25] VITALS: BP 137/85; PULSE 55; TEMP 97.9
== END 2024-05-19 12:20 | disposition home or self-care (01) ==
LOC: JASU-SURG 06:56
PROVIDERS: ATTEND Pain Medicine Pain Medicine
PROC: 3E023BZ Introduction of Anesthetic Agent into Muscle, Percutaneous Approach (ICD-10-PCS; principal; 2024-05-19 11:50)
DX: M53.3 Sacrococcygeal disorders, not elsewhere classified (principal)
CPT/HCPCS: 76000-TC-FY

== ENCOUNTER 2024-06-17 05:08 | Day surgery (SDC) | payer OTHER ==
[2024-06-15 13:29] VITALS: BMI 27.4
[2024-06-17] MEDS: amLODIPine BESYLATE 5 MG TABLET (FP) PO ONE (10:00)
[2024-06-17] MEDS: METOPROLOL TARTRATE 25 MG TABLET (FP) PO ONE (10:00)
[2024-06-17] MEDS ORDERED: THROMBIN (BOVINE) 20,000 UNIT VIAL TP ONE (10:56)
[2024-06-17] MEDS ORDERED: ceFAZolin SODIUM 1 GM VIAL ONE (10:56)
[2024-06-17] MEDS ORDERED: MIDAZOLAM HCL 2 MG/2 ML SINGLE DOSE VIAL ONE (11:25)
[2024-06-17] MEDS ORDERED: ROCURONIUM BROMIDE 50 MG/5 ML SYRINGE ONE (11:25)
[2024-06-17] MEDS ORDERED: PROPOFOL 20 ML ONE ×2 (11:25→14:05)
[2024-06-17] MEDS: ceFAZolin SODIUM 1 GM VIAL IVPB ONE ×2 (12:18)
[2024-06-17] MEDS ORDERED: DEXAMETHASONE SOD PHOSPHATE 4 MG/1 ML VIAL ONE (12:28)
[2024-06-17] MEDS ORDERED: BUPIVACAINE LIPOSOME/PF (EXPAREL) 266 MG/20 ML VIAL ONE (12:37)
[2024-06-17] MEDS: BUPIVACAINE LIPOSOME/PF (EXPAREL) 266 MG/20 ML VIAL NR ONE (13:00)
[2024-06-17] MEDS: THROMBIN (BOVINE) 20,000 UNIT VIAL TP ONE ×2 (13:11)
[2024-06-17] MEDS: HYDROGEN PEROXIDE 473 ML PO ONE ×2 (13:20)
[2024-06-17] MEDS ORDERED: ONDANSETRON 4 MG/2 ML VIAL ONE (13:46)
[2024-06-17] MEDS ORDERED: ACETAMINOPHEN 1000 MG/100 ML BAG IVPB PRN (13:47)
[2024-06-17] MEDS ORDERED: oxyCODONE HCL 5 MG TABLET PO PRN ×2 (13:47)
[2024-06-17] MEDS ORDERED: ONDANSETRON 4 MG/2 ML VIAL IVPUSH PRN ×2 (13:47→14:33)
[2024-06-17] MEDS ORDERED: diazePAM CARPU-JECT 10 MG/2 ML DISP.SYRIN IVPUSH PRN (13:47)
[2024-06-17] MEDS ORDERED: SUGAMMADEX SODIUM 200 MG/2 ML VIAL ONE (13:53)
[2024-06-17] MEDS ORDERED: ACETAMINOPHEN INJECTION 100 ML ONE (13:53)
[2024-06-17] MEDS ORDERED: LACTATED RINGERS SOLUTION 1,000 ML IV SCH (14:00)
[2024-06-17] MEDS ORDERED: CEFAZOLIN 2 GM/D5W 2 GM/50 ML ML IVPB SCH (15:00)
[2024-06-17] MEDS: LACTATED RINGERS SOLUTION 1,000 ML IV SCH (16:00)
[2024-06-17] MEDS: CEFAZOLIN 2 GM/D5W 2 GM/50 ML ML IVPB SCH (18:01)
[2024-06-18 08:56] LABS: ABSOLUTE IMMATURE GRANULOCYTES 0.04 x10^3/uL (0.0-0.031); BASOPHILS # 0.03 x10^3/uL (0.01-0.08); HEMATOCRIT 40.1 % (40.1-51.0); HEMOGLOBIN 12.8 g/dL (13.7-17.5); MCHC 31.9 g/dl (32.3-36.5); MEAN CELL VOLUME 99.5 fl (79.0-92.2); MEAN PLT VOLUME 10.1 fl (9.4-12.4); MONOCYTE # 0.87 x10^3/uL (0.30-0.82); MONOCYTE % 7.5 % (5.3-12.2); PLATELET COUNT 116 x10^3/uL (163-337); RDW 12.1 % (12.6-16.6)
[2024-06-18 09:14] LABS: POTASSIUM 3.9 mmol/L (3.5-5.1)
[2024-06-18 09:16] LABS: ALBUMIN 3.3 g/dl (3.4-5.0); CALCIUM 8.7 mg/dL (8.5-10.1)
[2024-06-18 09:17] LABS: BLOOD UREA NITROGEN 16.4 mg/dL (7-18)
[2024-06-18 09:20] LABS: CREATININE 0.9 mg/dL (0.55-1.3)
[2024-06-18 09:21] LABS: BILIRUBIN,TOTAL 0.6 mg/dL (0.2-1); TOT PROT 5.8 g/dl (6.4-8.2)
[2024-06-18 11:37] VITALS: BP 130/70; PULSE 62; RESP 17; TEMP 97.2
== END 2024-06-18 15:14 | disposition home or self-care (01) ==
LOC: JASU-SURG 05:08 → JASUSAT 05:08 → SUATTDRO 05:08 → J8W 16:47 → JASUSAT 06-18 15:14
PROVIDERS: ATTEND Internal Medicine
PROC: 0SG704Z Fusion of Right Sacroiliac Joint with Internal Fixation Device, Open Approach (ICD-10-PCS; principal; 2024-06-17 11:00)
DX: M46.1 Sacroiliitis, not elsewhere classified (principal); M53.3 Sacrococcygeal disorders, not elsewhere classified
CPT/HCPCS: 27279; L8699; 36415; 72100-TC-FY; 76000-TC-FY; 80053; 85025; 94760; C1713; C1776; J0131; J0666

== ENCOUNTER 2024-10-27 06:19 | Day surgery (SDC) | payer OTHER ==
[2024-10-25 13:55] VITALS: BMI 26.9
[2024-10-27] MEDS ORDERED: ACETAMINOPHEN 500 MG TABLET (FP) PO PRN (09:16)
[2024-10-27] MEDS: LIDOCAINE HCL 1% PRESERVATIVE FREE - 30ML VIAL IJ ONE (12:17)
[2024-10-27] MEDS: IOHEXOL 180 MG/1 ML ML IJ ONE (12:17)
[2024-10-27] MEDS: DEXAMETHASONE SOD PHOSPHATE 10 MG/1 ML VIAL IVPUSH ONE (12:18)
[2024-10-27 12:54] VITALS: RESP 20
[2024-10-27 16:32] VITALS: BP 150/80; PULSE 60; TEMP 97
== END 2024-10-27 13:15 | disposition home or self-care (01) ==
LOC: JASU-SURG 06:19
PROVIDERS: ATTEND Pain Medicine Pain Medicine
PROC: 3E0R3BZ Introduction of Anesthetic Agent into Spinal Canal, Percutaneous Approach (ICD-10-PCS; 2024-10-27)
PROC: 3E0R33Z Introduction of Anti-inflammatory into Spinal Canal, Percutaneous Approach (ICD-10-PCS; principal; 2024-10-27 11:30)
DX: M54.16 Radiculopathy, lumbar region (principal)
CPT/HCPCS: 76000-TC-FY; J1100